=== PATIENT | female | born 1955 | race Asian ===

== ENCOUNTER 2017-03-03 13:01 | Emergency (ER) | payer OTHER ==
[~2017-03-03] VITALS: Ht 154.9 cm; Wt 54.5 kg
[~2017-03-03 13:01] MED LIST: LOSA25TA21 PO; METF500T4 PO; SIMV-259 PO
[2017-03-03 13:12] LABS: GLUCOSE,POINT OF CARE 148 MG/DL (70-110)
[2017-03-03 15:39] VITALS: BP 142/74
== END 2017-03-03 15:42 | disposition home or self-care (01) ==
LOC: EMS 13:03
DX: Z02.1 Encounter for pre-employment examination (principal); I10 Essential (primary) hypertension; E11.9 Type 2 diabetes mellitus without complications; F17.210 Nicotine dependence, cigarettes, uncomplicated; Z88.0 Allergy status to penicillin; Z88.6 Allergy status to analgesic agent
CPT/HCPCS: 82962; 99283; 99406

== ENCOUNTER 2019-01-15 10:03 | Emergency (ER) | payer OTHER ==
[~2019-01-15] VITALS: Ht 147.3 cm; Wt 63.6 kg
[~2019-01-15 10:03] MED LIST changes: -LOSA25TA21 PO; +METF-960 PO; -METF500T4 PO
[2019-01-15 10:05] VITALS: BP 157/72
[2019-01-15 10:24] LABS: GLUCOSE,POINT OF CARE 275 MG/DL (70-110)
== END 2019-01-15 10:45 | disposition home or self-care (01) ==
LOC: EMS 10:06
DX: Z02.1 Encounter for pre-employment examination (principal); E11.9 Type 2 diabetes mellitus without complications; I10 Essential (primary) hypertension; Z90.710 Acquired absence of both cervix and uterus; Z79.84 Long term (current) use of oral hypoglycemic drugs; Z79.899 Other long term (current) drug therapy

== ENCOUNTER → 2019-01-18 | Outpatient (CLI) | payer OTHER | END | disposition home or self-care (01) | LOC: RADPV 10:45 | PROVIDERS: ATTEND Family Medicine | DX: R76.11 Nonspecific reaction to tuberculin skin test without active tuberculosis (principal); I10 Essential (primary) hypertension ==

== ENCOUNTER 2021-12-29 11:25 | Emergency (ER) | payer MEDICARE, OTHER ==
[~2021-12-29] VITALS: Ht 149.9 cm; Wt 54.5 kg
[~2021-12-29 11:25] MED LIST changes: +LOSA-382 PO; +METF-1211 PO; -METF-960 PO
[2021-12-29] MEDS ORDERED: AMLO2.5T29 PO (11:48)
[2021-12-29 12:15] LABS: BASOPHILS % (AUTO) 0.7 % (0.0-2.0); EOSINOPHILS % (AUTO) 2.6 % (1.0-6.0); HEMATOCRIT 38.7 % (36-46); HEMOGLOBIN 12.6 g/dL (12.0-16.0); LYMPHOCYTES % (AUTO) 25.3 % (22.0-44.0); MEAN CORPUSCULAR HEMOGLOBIN 26.7 pg (26.0-34.0); MEAN CORPUSCULAR HGB CONC 32.4 G/dL (31.0-37.0); MEAN CORPUSCULAR VOLUME 82 fL (80-100); MONOCYTES # (AUTO) 0.5 K/uL (0.1-1.0); MONOCYTES % (AUTO) 6.3 % (2.0-9.0); NEUTROPHILS % (AUTO) 65.1 % (40.0-70.0); PLATELET COUNT (AUTO) 371 K/uL (150-450); RED BLOOD CELL COUNT(AUTO) 4.71 MIL/uL (4.00-5.20); RED CELL DISTRIBUTION WIDTH 13.5 % (11.5-14.5)
[2021-12-29 12:27] LABS: ANION GAP 9 mmol/L (8-16); CALCIUM, TOTAL 9.7 mg/dL (8.8-10.5); CARBON DIOXIDE 30 mmol/L (22-29); CHLORIDE 100 mmol/L (98-107); CREATININE 0.55 mg/dL (0.60-1.30); GLUCOSE,RANDOM 136 mg/dL (70-110); POTASSIUM 3.9 mmol/L (3.5-5.1); SODIUM SERUM 139 mmol/L (136-145); UREA NITROGEN, BLOOD 17 mg/dL (7-18)
[2021-12-29 12:30] LABS: GLOMERULAR FILTR. RATE CALC > 60 mL/min (>60)
[2021-12-29 12:33] LABS: ALBUMIN 4.2 g/dL (3.4-5.0); BILIRUBIN,TOTAL 0.3 mg/dL (0.1-1.0); TOTAL PROTEIN, SERUM 8.2 g/dL (6.4-8.2)
[2021-12-29] MEDS ORDERED: MECLIZINE HCL 25 MG TABLET PO ONE (12:45)
[2021-12-29] MEDS ORDERED: AMLO-257 PO (12:49)
[2021-12-29] MEDS ORDERED: FENO145T PO (12:49)
[2021-12-29] MEDS: ONDANSETRON HCL 4 MG/2 ML VIAL IVP ONE ×2 (13:09→13:26)
[2021-12-29] MEDS: SODIUM CHLORIDE 0.9% 1,000 ML IV ONE ×2 (13:10→13:27)
[2021-12-29 13:12] LABS: ALANINE AMINOTRANSFERASE 29 U/L (12-78); ALKALINE PHOSPHATASE 60 U/L (46-116); ASPARTATE AMINOTRANSFERASE 25 U/L (15-37); LIPASE 81 U/L (73-393)
[2021-12-29] MEDS ORDERED: ONDANSETRON HCL 4 MG TABLET PO ONE (13:30)
[2021-12-29 13:58] LABS: COVID AG,FIA SOURCE NASAL SWAB
[2021-12-29 14:25] LABS: INFLUENZA TYPE A NEGATIVE FOR TYPE A (NEGATIVE); INFLUENZA TYPE B NEGATIVE FOR TYPE B (NEGATIVE)
[2021-12-29] MEDS ORDERED: AZIT250T9 PO (14:56)
[2021-12-29] MEDS ORDERED: MECL-134 PO (14:57)
[2021-12-29 15:04] VITALS: BP 141/69
== END 2021-12-29 15:16 | disposition home or self-care (01) ==
LOC: EMS 11:25
DX: R42 Dizziness and giddiness (principal); H66.93 Otitis media, unspecified, bilateral; E11.9 Type 2 diabetes mellitus without complications; I10 Essential (primary) hypertension; R53.1 Weakness; Z86.69 Personal history of other diseases of the nervous system and sense organs; Z88.0 Allergy status to penicillin; Z88.8 Allergy status to other drugs, medicaments and biological substances; Z20.822 Contact with and (suspected) exposure to COVID-19
CPT/HCPCS: 36415; 70450; 80053; 82962; 83690; 84484; 85025; 87426; 87804; 93005; 99285; Q0162; J2405; J7030

== ENCOUNTER 2024-07-08 11:22 | Emergency (ER) | payer MEDICARE, OTHER ==
[~2024-07-08] VITALS: Ht 147.3 cm; Wt 52.3 kg
[~2024-07-08 11:22] MED LIST changes: +AMLO-257 PO; +AZIT250T9 PO; +FENO145T PO; +MECL-134 PO
[2024-07-08 11:38] VITALS: TEMP 98
[2024-07-08 12:20] LABS: COVID AG,FIA SOURCE NASAL SWAB
[2024-07-08 12:23] LABS: BASOPHILS % (AUTO) 0.4 % (0.0-2.0); EOSINOPHILS % (AUTO) 1.9 % (1.0-6.0); HEMATOCRIT 40.3 % (36-46); HEMOGLOBIN 13.2 g/dL (12.0-16.0); LYMPHOCYTES # (AUTO) 1.1 K/uL (1.0-4.8); LYMPHOCYTES % (AUTO) 12.8 % (22.0-44.0); MEAN CORPUSCULAR HEMOGLOBIN 27.3 pg (26.0-34.0); MEAN CORPUSCULAR HGB CONC 32.6 G/dL (31.0-37.0); MEAN CORPUSCULAR VOLUME 84 fL (80-100); MONOCYTES # (AUTO) 0.7 K/uL (0.1-1.0); NEUTROPHILS # (AUTO) 6.8 K/uL (1.8-7.7); NEUTROPHILS % (AUTO) 76.9 % (40.0-70.0); PLATELET COUNT (AUTO) 294 K/uL (150-450); RED BLOOD CELL COUNT(AUTO) 4.81 MIL/uL (4.00-5.20); RED CELL DISTRIBUTION WIDTH 13.8 % (11.5-14.5); WHITE BLOOD COUNT (AUTO) 8.8 K/uL (4.5-11.0)
[2024-07-08 12:26] LABS: CHLORIDE 102 mmol/L (98-107); POTASSIUM 3.6 mmol/L (3.5-5.1); SODIUM SERUM 142 mmol/L (136-145)
[2024-07-08 12:27] LABS: ANION GAP 7 mmol/L (8-16); CARBON DIOXIDE 33 mmol/L (22-29); CREATININE 0.82 mg/dL (0.60-1.30); GLOMERULAR FILTR. RATE CALC > 60 mL/min (>60); GLUCOSE,RANDOM 137 mg/dL (70-110); UREA NITROGEN, BLOOD 19 mg/dL (7-18)
[2024-07-08 12:32] LABS: ALANINE AMINOTRANSFERASE 22 U/L (12-78); ALBUMIN 3.7 g/dL (3.4-5.0); ALKALINE PHOSPHATASE 72 U/L (46-116); ASPARTATE AMINOTRANSFERASE 21 U/L (15-37); BILIRUBIN,TOTAL 0.5 mg/dL (0.1-1.0); LIPASE 22 U/L (16-77); TOTAL PROTEIN, SERUM 8.2 g/dL (6.4-8.2)
[2024-07-08 12:45] LABS: SARS-COV2 (COVID) ANTIGEN,FIA Negative (Negative)
[2024-07-08 12:58] LABS: INFLUENZA TYPE A NEGATIVE FOR TYPE A (NEGATIVE); INFLUENZA TYPE B NEGATIVE FOR TYPE B (NEGATIVE)
[2024-07-08] MEDS ORDERED: MECL-302 PO (13:30)
[2024-07-08] MEDS: ACETAMINOPHEN 500 MG TABLET PO ONE (13:31)
[2024-07-08 13:50] LABS: APPEARANCE,URINE CLEAR (CLEAR); BILIRUBIN,URINE NEGATIVE (NEGATIVE); COLOR,URINE LIGHT YELLOW (YELLOW); GLUCOSE, URINE (UA) NEGATIVE (NEGATIVE); KETONES,URINE NEGATIVE (NEGATIVE); LEUKOCYTE ESTERASE ,URINE NEGATIVE (NEGATIVE); NITRATE,URINE NEGATIVE (NEGATIVE); OCCULT BLOOD,URINE NEGATIVE (NEGATIVE); PROTEIN,URINE TRACE mg/dL (NEGATIVE); SPECIFIC GRAVITIY, URINE 1.023 (1.003-1.030); UROBILINOGEN,URINE <=1.0 mg/dL (<=1.0)
[2024-07-08 14:34] LABS: TROPONIN I-HIGH SENSITIVITY 5 ng/L (<51)
[2024-07-08 16:00] VITALS: BP 123/57; PULSE 85; RESP 16; O2SAT 99
[2024-07-08] MEDS ORDERED: ONDA-104 PO (16:05)
[2024-07-08] MEDS ORDERED: OMEP20 PO (16:05)
[2024-07-08] MEDS ORDERED: ACET-66 PO (16:05)
== END 2024-07-08 16:15 | disposition home or self-care (01) ==
LOC: EMS 11:22
DX: K82.4 Cholesterolosis of gallbladder (principal); R10.11 Right upper quadrant pain; R42 Dizziness and giddiness; E11.9 Type 2 diabetes mellitus without complications; I10 Essential (primary) hypertension; E78.00 Pure hypercholesterolemia, unspecified; Z88.0 Allergy status to penicillin; Z88.6 Allergy status to analgesic agent; Z79.84 Long term (current) use of oral hypoglycemic drugs; Z79.899 Other long term (current) drug therapy; Z20.822 Contact with and (suspected) exposure to COVID-19
CPT/HCPCS: 76705; 80048; 80076; 81003; 83690; 84484; 85025; 87804; 93005; 99284